=== PATIENT | male | born 1945 | race Caucasian/White ===

== ENCOUNTER 2017-10-25 06:10 | Inpatient (IN) | payer OTHER ==
[2017-10-19 13:00] VITALS: BP 148/92
[~2017-10-25] VITALS: Ht 172.7 cm; Wt 110.9 kg
[~2017-10-25 06:10] MED LIST: BUDE10.2 INH; OMEP20TA62 PO
[2017-10-25] MEDS ORDERED: BUPIVACAINE/PF-EPI 0.5% 1:200K ONE (06:45)
[2017-10-25] MEDS ORDERED: LACTATED RINGERS 1,000 ML IV SCH (06:48)
[2017-10-25] MEDS ORDERED: MIDAZOLAM 1 MG/ML, 2ML ONE (06:59)
[2017-10-25] MEDS ORDERED: FENTANYL PF 250 MCG/5ML ONE (06:59)
[2017-10-25] MEDS ORDERED: PROPOFOL 10 MG/ML, 20ML ONE (07:20)
[2017-10-25] MEDS ORDERED: DEXAMETHASONE 4 MG/ML, 1ML ONE (07:20)
[2017-10-25] MEDS ORDERED: ONDANSETRON 2MG/ML, 2ML ONE (07:20)
[2017-10-25] MEDS ORDERED: EPHEDRINE 50 MG/ML, 1ML ONE (07:20)
[2017-10-25] MEDS ORDERED: SUCCINYLCHOLINE 20 MG/ML, 10ML ONE (07:20)
[2017-10-25] MEDS ORDERED: CEFAZOLIN 1,000 MG ONE (07:20)
[2017-10-25] MEDS ORDERED: ROCURONIUM 10 MG/ML,10ML ONE (07:20)
[2017-10-25] MEDS ORDERED: NEOSTIGMINE 1 MG/ML, 10ML ONE (07:20)
[2017-10-25] MEDS ORDERED: GLYCOPYRROLATE 0.2MG/1ML, 5ML ONE (07:20)
[2017-10-25] MEDS ORDERED: SCOPOLAMINE PATCH, 1.5MG PATCH.TD72 TD ONE (07:30)
[2017-10-25] MEDS ORDERED: GABAPENTIN 300 MG CAPSULE PO ONE (07:30)
[2017-10-25] MEDS ORDERED: ACETAMINOPHEN 500 MG TABLET PO ONE (07:30)
[2017-10-25] MEDS ORDERED: PROMETHAZINE 25 MG/ML, 1ML IV PRN (08:30)
[2017-10-25] MEDS ORDERED: hydrALAzine 20 MG/ML, 1ML IV PRN (08:30)
[2017-10-25] MEDS ORDERED: KETOROLAC 30 MG/1 ML IV PRN (08:30)
[2017-10-25] MEDS ORDERED: METOCLOPRAMIDE 5 MG/ML, 2ML IV PRN (08:30)
[2017-10-25] MEDS ORDERED: MEPERIDINE/PF 25MG/0.5ML IVPush PRN (08:30)
[2017-10-25] MEDS ORDERED: ALBUTEROL SULFATE 2.5 MG/3 ML NPPB PRN (08:30)
[2017-10-25] MEDS ORDERED: HYDROmorphone 1 MG/ML, 1ML IV PRN (08:30)
[2017-10-25] MEDS ORDERED: ONDANSETRON 2MG/ML, 2ML IVPush PRN ×2 (08:30→09:00)
[2017-10-25] MEDS ORDERED: OXYcodone 5 MG/5 ML ORAL.SOL UDC PO PRN (08:30)
[2017-10-25] MEDS ORDERED: LABETALOL 5MG/ML, 20ML IV PRN (08:30)
[2017-10-25] MEDS ORDERED: LORazepam 2 MG/ML, 1ML IVPush PRN (09:00)
[2017-10-25] MEDS ORDERED: FAMOTIDINE 20 MG TABLET PO SCH (09:00)
[2017-10-25] MEDS ORDERED: ACETAMINOPHEN 325 MG TABLET PO PRN (09:00)
[2017-10-25] MEDS ORDERED: HYDROcodone/APAP 5/325 TABLET PO PRN (09:00)
[2017-10-25] MEDS: LACTATED RINGERS 1,000 ML IV SCH ×2 (09:00→19:00)
[2017-10-25] MEDS ORDERED: morphine SULFATE 10 MG/ML, 1ML IVPush PRN (09:00)
[2017-10-25] MEDS ORDERED: DIPHENHYDRAMINE 50 MG/ML, 1ML IVPush PRN (09:00)
[2017-10-25] MEDS ORDERED: ENALAPRILAT 1.25 MG/ML, 2ML IVPush PRN (09:00)
[2017-10-25] MEDS ORDERED: DIPHENHYDRAMINE 25 MG CAPSULE PO PRN (09:00)
[2017-10-25] MEDS ORDERED: LORazepam 0.5MG TABLET PO PRN (09:00)
[2017-10-25] MEDS: Budesonide/Formoterol Fumarate (Symbicort 160-4.5 Mcg Inhaler) INH SCH ×2 (09:00→21:00)
[2017-10-25] MEDS ORDERED: FENTANYL PF 100 MCG/2ML ONE (09:08)
[2017-10-25] MEDS: FENTANYL PF 100 MCG/2ML IV PRN ×2 (09:10→09:20)
[2017-10-25] MEDS ORDERED: OXYcodone 5 MG/5 ML ORAL.SOL UDC ONE (09:38)
[2017-10-25] MEDS ORDERED: KETOROLAC 30 MG/1 ML ONE (09:38)
[2017-10-25 10:28] VITALS: BP 115/70
[2017-10-25 12:07] VITALS: BP 122/70
[2017-10-25] MEDS: FAMOTIDINE 20 MG/2 ML IVPush SCH ×2 (12:39→23:10)
[2017-10-25] MEDS: CEFAZOLIN PMX 2GM/50ML 50 ML IVPB SCH ×2 (16:04→23:22)
[2017-10-25 20:00] VITALS: BP 125/69
[2017-10-26] VITALS: BP 115/74
[2017-10-26 04:00] VITALS: BP 118/74
[2017-10-26 05:34] LABS: BASOPHILS # (AUTO) 0.02 x10^3/uL (0-0.1); BASOPHILS % (AUTO) 0 % (0-1); EOSINOPHILS # (AUTO) 0.05 x10^3/uL (0-0.4); EOSINOPHILS % (AUTO) 1 % (1-7); LYMPHOCYTES # (AUTO) 1.06 x10^3/uL (1-3.4); LYMPHOCYTES % (AUTO) 13 % (22-44); MD NO; MEAN CORPUSCULAR HGB CONC 34.1 g/dL (33.2-36.2); MONOCYTES # (AUTO) 0.78 x10^3/uL (0.2-0.8); MONOCYTES % (AUTO) 10 % (2-9); NEUTROPHILS # (AUTO) 6.33 x10^3/uL (1.8-6.8); NEUTROPHILS % (AUTO) 77 % (42-75); PLATELET COUNT 186 x10^3/uL (130-400); RED BLOOD COUNT 3.87 x10^6/uL (4.38-5.82); RED CELL DISTRIBUTION WIDTH 14.2 % (9.4-14.8)
[2017-10-26 05:39] LABS: ANION GAP 8 mmol/L (5-15); CALCIUM 7.7 mg/dL (8.5-10.1); CHLORIDE 105 mmol/L (98-107)
[2017-10-26 05:40] LABS: CREATININE 1.38 mg/dL (0.7-1.3)
[2017-10-26] MEDS ORDERED: ENOXAPARIN 40 MG/0.4 ML SQ SCH (06:00)
[2017-10-26 07:37] VITALS: BP 106/68
[2017-10-26] MEDS: Budesonide/Formoterol Fumarate (Symbicort 160-4.5 Mcg Inhaler) INH SCH (09:00)
[2017-10-26] MEDS: FAMOTIDINE 20 MG/2 ML IVPush SCH (10:26)
[2017-10-26] MEDS ORDERED: HYDR-3240 PO (11:07)
== END 2017-10-26 12:42 | disposition home or self-care (01) | DRG 163 ==
LOC: ORIP 06:10 → 4NOR 10:18 → DCLOUNGE 10-26 12:17
PROVIDERS: ADMIT Thoracic Surgery (Cardiothoracic Vascular Surgery); ATTEND Thoracic Surgery (Cardiothoracic Vascular Surgery)
PROC: 0BBG4ZZ Excision of Left Upper Lung Lobe, Percutaneous Endoscopic Approach (ICD-10-PCS; principal; 2017-10-25 07:30)
PROC: 0YU64JZ Supplement Left Inguinal Region with Synthetic Substitute, Percutaneous Endoscopic Approach (ICD-10-PCS; 2017-10-25 07:30)
DX: D38.1 Neoplasm of uncertain behavior of trachea, bronchus and lung (principal); N17.0 Acute kidney failure with tubular necrosis; K40.90 Unilateral inguinal hernia, without obstruction or gangrene, not specified as recurrent; D17.6 Benign lipomatous neoplasm of spermatic cord; J45.909 Unspecified asthma, uncomplicated; J44.9 Chronic obstructive pulmonary disease, unspecified; Z72.89 Other problems related to lifestyle; Z85.89 Personal history of malignant neoplasm of other organs and systems
CPT/HCPCS: 36415; 71045; 80048; 85025; 86850; 86900; 88307; 88309; 88341; 88342; C1729; J0690; J1100; J1650; J1885; J2250; J2405; J2704; J2710; J3010; J3490; C1727; C1781; G0461; J0330; J2270; J7120; S0028

== ENCOUNTER 2018-08-27 08:20 | Outpatient (CLI) | payer OTHER ==
[~2018-08-27 08:20] MED LIST changes: +HYDR-3240 PO
[2018-08-27] MEDS ORDERED: FENTANYL PF 100 MCG/2ML ONE (08:59)
[2018-08-27] MEDS ORDERED: MIDAZOLAM 1 MG/ML, 5ML ONE (08:59)
[2018-08-27] MEDS ORDERED: GADOBUTROL 10 MMOL/10 ML PFS ONE (09:29)
== END 2018-08-27 23:59 | disposition home or self-care (01) ==
LOC: RAD 08:20
PROVIDERS: ATTEND Psychiatry & Neurology Neurology
DX: H47.011 Ischemic optic neuropathy, right eye (principal); H46.8 Other optic neuritis
CPT/HCPCS: 70543; 99156; 99157; A9585; J2250; J3010

== ENCOUNTER → 2020-11-02 | Day surgery (SDC) | payer MEDICARE, OTHER ==
[~2020-11-02] MED LIST changes: +ALPRazolam 1MG TAB ONE; +GADOTERATE 10 MMOL/20ML SYR ONE; +HYDR-2214 PO; -HYDR-3240 PO
[2020-11-02 12:41] LABS: BASOPHILS % (AUTO) 1 % (0-1); EOSINOPHILS % (AUTO) 2 % (1-7); LYMPHOCYTES % (AUTO) 17 % (22-44); MEAN CORPUSCULAR HEMOGLOBIN 31.7 pg (27.5-34.5); MEAN CORPUSCULAR HGB CONC 34.1 g/dL (33.2-36.2); MEAN PLATELET VOLUME 8.5 fL (7.4-10.4); MONOCYTES % (AUTO) 8 % (2-9); NEUTROPHILS % (AUTO) 72 % (42-75); PLATELET COUNT 192 x10^3/uL (130-400); RED BLOOD COUNT 4.65 x10^6/uL (4.38-5.82); RED CELL DISTRIBUTION WIDTH 12.9 % (9.4-14.8)
[2020-11-02 12:43] LABS: GLUCOSE, CSF 50 mg/dL (40-80); TOTAL PROTEIN,CSF 63 mg/dL (15-45)
[2020-11-02 12:45] LABS: HCT (SEDRATE) 43.3 % (39.2-51.8)
[2020-11-02 12:47] LABS: ALBUMIN 4.3 g/dL (3.4-5.0); ANION GAP 5 mmol/L (5-15); C-REACTIVE PROTEIN, QUANT 0.08 mg/dL (0.02-0.49); CALCIUM 8.6 mg/dL (8.5-10.1); CHLORIDE 105 mmol/L (98-107)
[2020-11-02 12:49] LABS: ALANINE AMINOTRANSFERASE 26 U/L (12-78); ALKALINE PHOSPHATASE 54 U/L (45-117); BILIRUBIN,TOTAL 0.9 mg/dL (0.2-1.0); CREATININE 1.15 mg/dL (0.7-1.3); TOTAL PROTEIN 7.5 g/dL (6.4-8.2)
== END | disposition home or self-care (01) ==
LOC: OUT 08:17
PROVIDERS: ATTEND Psychiatry & Neurology Neurology
DX: H43.813 Vitreous degeneration, bilateral (principal); J32.9 Chronic sinusitis, unspecified
CPT/HCPCS: 36415; 62328; 70543; 80053; 82040; 82042; 82164; 82784; 82945; 83873; 84157; 85025; 85549; 85651; 86140; 86592; 86645; 86695; 86696; 86762; 86777; 86778; 87015; 87070; 87075; 87102; 87116; 87205; 87206; 87899; 88108; 89051; A9575